=== PATIENT | male | born 1945 | race Two or more races ===

== ENCOUNTER 2020-08-13 16:24 | Inpatient (IN) | payer OTHER ==
[~2020-08-13] VITALS: Ht 170.2 cm; Wt 59.2 kg
[2020-08-13 17:41] LABS: Basophils # (auto) 0.1 10 ^3/uL (0-0.2); Eosinophils # (auto) 0 10 ^3/uL (0-0.8); Eosinophils % (auto) 0.2 % (0.0-7.0); Hemoglobin 8.1 g/dL (13.5-17.5)
[2020-08-13 17:44] LABS: Basophils % (auto) 0.6 % (0.0-2.0); Hematocrit 27.1 % (41.0-53.0); Lymphocytes # (auto) 0.5 10 ^3/uL (0.4-5.4); Lymphocytes % (auto) 4.5 % (10.0-50.0); Mean Corpuscular Hemoglobin 20.3 pg (28.0-32.0); Mean Corpuscular Hgb Conc. 29.8 g/dL (32.0-36.0); Mean Corpuscular Volume 68.2 fL (80.0-100.0); Monocytes # (auto) 1.1 10 ^3/uL (0-1.3); Monocytes % (auto) 9.3 % (0.0-12.0); Neutrophils # (auto) 9.8 10 ^3/uL (1.6-8.6); Neutrophils % (auto) 85.4 % (37.0-80.0); Nucleated Red Blood Cells % 0.2 %; Red Blood Cells 3.98 10^6/uL (4.5-5.90); Red Cell Distribution Width 19.7 % (11.8-14.3); White Blood Cell 11.5 10^3/uL (4.4-10.8)
[2020-08-13 17:53] LABS: Albumin 2.5 g/dL (3.4-5.0); Anion Gap 7 (5-15); Blood Urea Nitrogen 17 mg/dL (7-18); Calcium 9.3 mg/dL (8.5-10.1); Carbon Dioxide 24 mmol/L (21-32); Chloride 110 mmol/L (98-107); Glucose 102 mg/dL (74-106); Potassium 3.8 mmol/L (3.5-5.1); Sodium 141 mmol/L (136-145)
[2020-08-13 17:55] LABS: Alanine Aminotransferase 37 U/L (16-61); Aspartate Aminotransferase 75 U/L (15-37); BUN/Creatinine Ratio 17.2; GFR African American 95 mL/min; GFR Non-African American 79 mL/min
[2020-08-13 18:00] LABS: Alkaline Phosphatase 296 U/L (45-117); Bilirubin, Total 1.1 mg/dL (0.2-1.0); Total Protein 6.7 g/dL (6.4-8.2)
[2020-08-13 20:14] LABS: Urine WBC None Seen /hpf (0 - 3)
[2020-08-13 20:41] LABS: Urine Amorphous Crystal FEW /hpf (None Seen); Urine Bacteria NONE SEEN /hpf (None Seen); Urine Blood Negative /uL (Negative); Urine Mucus FEW (None Seen); Urine Specific Gravity 1.026 (1.001-1.035); Urine WBC Clumps PRESENT /hpf (None Seen)
[2020-08-13] MEDS ORDERED: ALBUMIN 5% 250 ML IV ONE (21:45)
[2020-08-13] MEDS ORDERED: MORPHINE SULF INJ 2 MG/ML SYRINGE 1ML IV PRN (21:45)
[2020-08-13] MEDS ORDERED: ALBUTEROL SULF 2.5 MG/0.5ML(0.5%) NEB SOLN NEB PRN (21:45)
[2020-08-13] MEDS ORDERED: cefTRIAXone 1GM/50ML D5W 50 ML IV ONE (21:45)
[2020-08-13] MEDS ORDERED: ONDANSETRON HCL 4 MG/2 ML VIAL IV PRN (21:45)
[2020-08-13] MEDS ORDERED: ACETAMINOPHEN 325 MG TAB PO PRN (21:45)
[2020-08-13] MEDS ORDERED: NITROGLYCERIN 0.4 MG SL TAB SL PRN (21:45)
[2020-08-13] MEDS ORDERED: AZITHROMYCIN 500MG/ 250ML 250 ML IV ONE (22:30)
[2020-08-13] MEDS: SODIUM CHLORIDE 0.9% 1,000 ML IV SCH (23:17)
[2020-08-13] MEDS: FAMOTIDINE 20 MG TAB PO SCH (23:18)
[2020-08-13 23:46] VITALS: BP 144/68
[2020-08-14] VITALS (8 sets, daily range): BP systolic 130–152; BP diastolic 64–79
[2020-08-14 06:21] LABS: Basophils # (auto) 0.1 10 ^3/uL (0-0.2); Eosinophils # (auto) 0 10 ^3/uL (0-0.8); Hematocrit 22.1 % (41.0-53.0); Nucleated Red Blood Cells % 0.1 %; Red Blood Cells 3.21 10^6/uL (4.5-5.90)
[2020-08-14 06:24] LABS: Basophils % (auto) 0.5 % (0.0-2.0); Eosinophils % (auto) 0.1 % (0.0-7.0); Lymphocytes # (auto) 0.8 10 ^3/uL (0.4-5.4); Lymphocytes % (auto) 7.5 % (10.0-50.0); Mean Corpuscular Hemoglobin 21.8 pg (28.0-32.0); Mean Corpuscular Hgb Conc. 31.7 g/dL (32.0-36.0); Mean Corpuscular Volume 68.7 fL (80.0-100.0); Monocytes # (auto) 1.2 10 ^3/uL (0-1.3); Monocytes % (auto) 11.7 % (0.0-12.0); Neutrophils # (auto) 8.4 10 ^3/uL (1.6-8.6); Neutrophils % (auto) 80.2 % (37.0-80.0); Red Cell Distribution Width 19.5 % (11.8-14.3); White Blood Cell 10.4 10^3/uL (4.4-10.8)
[2020-08-14 06:43] LABS: Potassium 3.9 mmol/L (3.5-5.1)
[2020-08-14 06:56] LABS: Albumin 2.5 g/dL (3.4-5.0); BUN/Creatinine Ratio 20.9; Bilirubin, Total 0.9 mg/dL (0.2-1.0); Calcium 8.8 mg/dL (8.5-10.1); Total Protein 5.7 g/dL (6.4-8.2)
[2020-08-14] MEDS: ENOXAPARIN SOD 40 MG/0.4 ML SYRINGE SC SCH (10:00)
[2020-08-14] MEDS: FAMOTIDINE 20 MG TAB PO SCH ×2 (10:00→21:31)
[2020-08-14] MEDS: SODIUM CHLORIDE 0.9% 1,000 ML IV SCH (11:05)
[2020-08-14] MEDS: SODIUM FERR GLUC 62.5MG/5ML 125 MG in SODIUM CHL 0.9% 100 ML IV SCH (12:00)
[2020-08-14 15:41] LABS: INR 1.21 (0.9-1.15); Partial Thromboplastin Time 36.5 sec (23.0-31.2)
[2020-08-14] MEDS ORDERED: IOHEXOL 300 MG/ML 100ML BOTTLE IJ ONE (16:19)
[2020-08-14] MEDS ORDERED: cefTRIAXone 1GM/50ML D5W 50 ML IV SCH (21:00)
[2020-08-14] MEDS: MEGESTROL ACET 400MG/10ML ORAL SUSP PO SCH (21:31)
[2020-08-14] MEDS ORDERED: AZITHROMYCIN 500MG/ 250ML 250 ML IV SCH (22:00)
[2020-08-15] VITALS (12 sets, daily range): BP systolic 132–153; BP diastolic 67–79
[2020-08-15] MEDS: SODIUM CHLORIDE 0.9% 1,000 ML IV SCH (00:25)
[2020-08-15] MEDS ORDERED: MORPHINE SULF INJ 2 MG/ML SYRINGE 1ML IV ONE (02:30)
[2020-08-15 06:15] LABS: Hemoglobin 9.5 g/dL (13.5-17.5)
[2020-08-15 06:19] LABS: Hematocrit 31.3 % (41.0-53.0)
[2020-08-15] MEDS: ENOXAPARIN SOD 40 MG/0.4 ML SYRINGE SC SCH (10:00)
[2020-08-15] MEDS ORDERED: fentaNYL CITRATE 100 MCG/2 ML VL IV ONE ×2 (10:00)
[2020-08-15] MEDS ORDERED: MIDAZOLAM HCL 1MG/1ML-2 ML VIAL IV ONE (10:00)
[2020-08-15] MEDS ORDERED: LIDOCAINE 2%HCL (LOCAL ANESTH.) INJ 20ML MDV ONE (10:13)
[2020-08-15] MEDS ORDERED: FAMO20TA10 PO (10:28)
[2020-08-15] MEDS ORDERED: MEGE20TA5 PO (10:28)
[2020-08-15] MEDS ORDERED: GELATIN 1 SPONGE SIZE 50 TOP ONE (10:42)
[2020-08-15] MEDS: MEGESTROL ACET 400MG/10ML ORAL SUSP PO SCH (11:30)
[2020-08-15] MEDS: FAMOTIDINE 20 MG TAB PO SCH (11:30)
[2020-08-15] MEDS: SODIUM FERR GLUC 62.5MG/5ML 125 MG in SODIUM CHL 0.9% 100 ML IV SCH (12:00)
== END 2020-08-15 15:50 | disposition home or self-care (01) | DRG 180 ==
LOC: ER 16:24 → EDBD 16:24 → TELE 21:32 → TELE-EAST 23:34
PROVIDERS: ADMIT Nurse Practitioner; ATTEND Hospitalist
PROC: 30233N1 Transfusion of Nonautologous Red Blood Cells into Peripheral Vein, Percutaneous Approach (ICD-10-PCS; 2020-08-14)
PROC: 0FB13ZX Excision of Right Lobe Liver, Percutaneous Approach, Diagnostic (ICD-10-PCS; principal; 2020-08-15)
DX: C34.90 Malignant neoplasm of unspecified part of unspecified bronchus or lung (principal); E43 Unspecified severe protein-calorie malnutrition; G93.40 Encephalopathy, unspecified; D61.818 Other pancytopenia; Z68.1 Body mass index [BMI] 19.9 or less, adult; C78.7 Secondary malignant neoplasm of liver and intrahepatic bile duct; C79.51 Secondary malignant neoplasm of bone; Z20.822 Contact with and (suspected) exposure to COVID-19; K59.00 Constipation, unspecified; R74.01 Elevation of levels of liver transaminase levels; M19.90 Unspecified osteoarthritis, unspecified site; J43.9 Emphysema, unspecified; D63.0 Anemia in neoplastic disease; R62.7 Adult failure to thrive; Z90.79 Acquired absence of other genital organ(s); Z80.42 Family history of malignant neoplasm of prostate; Z82.49 Family history of ischemic heart disease and other diseases of the circulatory system; Z80.6 Family history of leukemia; Z87.891 Personal history of nicotine dependence; Z79.899 Other long term (current) drug therapy
CPT/HCPCS: 10022; 36415; 70450; 71045; 71260; 74177; 77012; 80053; 81001; 83880; 84484; 85014; 85018; 85025; 85049; 85610; 85730; 86850; 86900; 86901; 86920; 87426; 93005; 96365; 96367; 97163; 99291; G0378; J0696; J2250